=== PATIENT | female | born 1945 | race African-American/Black ===

== ENCOUNTER 2016-11-16 22:48 | Inpatient (IN) | payer MEDICARE, MEDICAID ==
[~2016-11-16] VITALS: Ht 160 cm; Wt 70.3 kg
[~2016-11-16 22:48] MED LIST: ASPIR 8181 MG ORAL; BP MEDS; CALCIUM500 M3 PO; IBUPROFEN600 MG ORAL; NORCO 5-325 TA1 EACH ORAL
[2016-11-16] MEDS ORDERED: NKM (22:57)
[2016-11-16 23:09] VITALS: BP 188/83
--- NOTE | 2016-11-16 23:22 | Emergency Room Report ---
History of Present Illness General Chief Complaint: Pain Source: Patient Present Illness HPI Patient presents with complaints of back pain She feels the back pain radiates across and wraparound the back towards the anterior abdominal area Denies any fall or trauma patient reports that she has many steps at her home and this has exacerbated her pain Ongoing for the past several days denies any chest pressures of breath Patient had rest cancer in remission for the past 18 years Denies any dysuria frequency denies any abdominal pain at this time and reports that the back pain essentially stops at the mid axillary area bilaterally Allergies: Coded Allergies: DIPHENHYDRAMINE (Unverified Adverse Reaction, Mild, 06/04/14) Patient History Past Medical History: see triage record Pertinent Family History: none Now: No : 4 Para: 4 Reviewed Nursing Documentation: PMH: Agreed, PSxH: Agreed Nursing Documentation-PMH Hx Cardiac Problems: Yes - Rheumatic Hx Hypertension: Yes Hx Cancer: Yes - Breast cancer History Of Psychiatric Problem: Yes - Depression Review of Systems All Other Systems: negative except mentioned in HPI Physical Exam Vital Signs Date Time Temp Pulse Resp B/P Pulse Ox O2 Delivery O2 Flow Rate FiO2 11/16/16 22:53 99.0 90 14 195/99 99 Room Air Sp02 EP Interpretation: reviewed, normal General Appearance: well appearing, no apparent distress Head: normocephalic, atraumatic 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, bilateral eye EOMI, bilateral eye PERRL ENT: hearing grossly normal, normal pharynx, TMs + canals normal, uvula midline Neck: full range of motion, supple, no meningismus, no bony tend Respiratory: lungs clear, normal breath sounds, no rhonchi, no respiratory distress, no retraction, no accessory muscle use Cardiovascular #1: normal peripheral pulses, regular rate, rhythm, no edema, no gallop, no JVD, no murmur Gastrointestinal: normal bowel sounds, non tender, soft, no mass, no organomegaly, non-distended, no guarding, no hernia, no pulsatile mass, no rebound Genitourinary: no CVA tenderness Musculoskeletal: other - Evidence of facial right-sided Hanna's palsy, otherwise moves lower extremity equally no focal deficits Neurologic: oriented x3, responsive, motor strength/tone normal, sensory intact Psychiatric: mood/affect normal Skin: normal color, no rash, warm/dry, palpation normal Lymphatic: normal inspection, no adenopathy Medical Decision Making Diagnostic Impression: Primary Impression: Back pain Additional Impression: Abnormal CT scan ER Course Multiple differentials considered including but not limited to, infectious, metabolic disorder, bony abnormality Patient's CT reveals evidence of lucency, in the iliac area This raises concern for possible metastatic disease given the patient's history Patient requires admission for further inpatient evaluation Labs Test 11/16/16 22:30 White Blood Count 6.9 K/UL (4.8-10.8) Red Blood Count 4.23 M/UL (4.20-5.40) Hemoglobin 11.3 G/DL (12.0-16.0) Hematocrit 34.3 % (37.0-47.0) Mean Corpuscular Volume 81 FL (80-99) Mean Corpuscular Hemoglobin 26.7 PG (27.0-31.0) Mean Corpuscular Hemoglobin Concent 32.9 G/DL (32.0-36.0) Red Cell Distribution Width 12.4 % (11.6-14.8) Platelet Count 170 K/UL (150-450) Mean Platelet Volume 8.3 FL (6.5-10.1) Neutrophils (%) (Auto) 59.3 % (45.0-75.0) Lymphocytes (%) (Auto) 31.9 % (20.0-45.0) Monocytes (%) (Auto) 6.1 % (1.0-10.0) Eosinophils (%) (Auto) 1.1 % (0.0-3.0) Basophils (%) (Auto) 1.5 % (0.0-2.0) Prothrombin Time 9.7 SEC (9.30-11.50) Prothromb Time International Ratio 0.9 (0.9-1.1) Activated Partial Thromboplast Time 28 SEC (23-33) Urine Color Pale yellow Urine Appearance Clear Urine pH 6.5 (4.5-8.0) Urine Specific [place] 1.010 (1.005-1.035) Urine Protein Negative (NEGATIVE) Urine Glucose (UA) Negative (NEGATIVE) Urine Ketones Negative (NEGATIVE) Urine Occult Blood 1+ (NEGATIVE) Urine Nitrite Negative (NEGATIVE) Urine Bilirubin Negative (NEGATIVE) Urine Urobilinogen Normal MG/DL (0.0-1.0) Urine Leukocyte Esterase 1+ (NEGATIVE) Urine RBC 0-2 /HPF (0 - 2) Urine WBC 2-4 /HPF (0 - 2) Urine Squamous Epithelial Cells Few /LPF (NONE/OCC) Urine Bacteria None /HPF (NONE) Sodium Level 136 mEQ/L (135-145) Potassium Level 3.2 mEQ/L (3.4-4.9) Chloride Level 97 mEQ/L (98-107) Carbon Dioxide Level 29 mEQ/L (20-30) Anion Gap 10 (5-15) Blood Urea Nitrogen 15 mg/dL (7-23) Creatinine 0.7 mg/dL (0.5-0.9) Estimat Glomerular Filtration Rate > 60 mL/min (>60) Glucose Level 97 mg/dL (74-106) Calcium Level 10.0 mg/dL (8.6-10.2) Total Bilirubin 0.6 mg/dL (0.0-1.2) Aspartate Amino Transf (AST/SGOT) 16 U/L (5-40) Alanine Aminotransferase (ALT/SGPT) 7 U/L (3-33) Alkaline Phosphatase 95 U/L (35-104) Total Creatine Kinase 132 U/L (26-140) Creatine Kinase MB 1.6 ng/mL (< 3.8) Creatine Kinase MB Relative Index 1.2 Troponin I < 0.30 ng/mL (<=0.30) Pro-B-Type Natriuretic Peptide 225 pg/mL (0-125) Total Protein 7.8 g/dL (6.6-8.7) Albumin 4.3 g/dL (3.5-5.2) Globulin 3.5 g/dL Albumin/Globulin Ratio 1.2 (1.0-2.7) Lipase 45 U/L (< 60) Rhythm Strip Diag. Results EP Interpretation: yes Rate: 67 Rhythm: NSR, no PVC's, no ectopy CT/MRI/US Diagnostic Results CT/MRI/US Diagnostic Results : Impression CT abdomen pelvis: Areas of lucency in the iliac area no obvious intra- abdominal pathology CT L-spine: Evidence of lucency in the iliac area nonspecific Last Vital Signs Date Time Temp Pulse Resp B/P Pulse Ox O2 Delivery O2 Flow Rate FiO2 11/16/16 23:09 99.0 73 18 188/83 99 Room Air Status: improved Disposition: ADMITTED INPATIENT Condition: Serious Referrals: NOT CHOSEN IPA/MD,REFERRING (PCP) NARDA GUSMAN D.O. Nov 16, 2016 23:22
[2016-11-16 23:54] LABS: APPEARANCE,URINE CLEAR; BASOPHILS % (AUTO) 1.5 % (0.0-2.0); EOSINOPHILS % (AUTO) 1.1 % (0.0-3.0); KETONES,URINE NEGATIVE (NEGATIVE); LYMPHOCYTES % (AUTO) 31.9 % (20.0-45.0); MEAN CORPUSCULAR HEMOGLOBIN 26.7 PG (27.0-31.0); MEAN CORPUSCULAR HGB CONC 32.9 G/DL (32.0-36.0); MEAN CORPUSCULAR VOLUME 81 FL (80-99); MEAN PLATELET VOLUME 8.3 FL (6.5-10.1); MONOCYTES % (AUTO) 6.1 % (1.0-10.0); NEUTROPHILS % (AUTO) 59.3 % (45.0-75.0); NITRITE,URINE NEGATIVE (NEGATIVE); PH,URINE 6.5 (4.5-8.0); PLATELET COUNT 170 K/UL (150-450); PROTEIN,URINE NEGATIVE (NEGATIVE); RED BLOOD COUNT 4.23 M/UL (4.20-5.40); RED CELL DISTRIBUTION WIDTH 12.4 % (11.6-14.8); UROBILINOGEN,URINE NORMAL MG/DL (0.0-1.0); WHITE BLOOD COUNT 6.9 K/UL (4.8-10.8)
[2016-11-17 00:03] LABS: LEUKOCYTE ESTERASE ,URINE 1+ (NEGATIVE)
[2016-11-17 00:04] LABS: RBC,URINE 0-2 /HPF (0 - 2); SQUAMOUS EPITHELIAL CELL,UR FEW /LPF (NONE/OCC)
[2016-11-17 00:05] LABS: INR 0.9 (0.9-1.1); PROTHROMBIN TIME 9.7 SEC (9.30-11.50)
[2016-11-17 00:07] LABS: TROPONIN I < 0.30 ng/mL (<=0.30)
[2016-11-17 00:10] LABS: ALANINE AMINOTRANSFERASE 7 U/L (3-33); ALBUMIN/GLOBULIN RATIO 1.2 (1.0-2.7); ANION GAP 10 (5-15); ASPARTATE AMINO TRANSFERASE 16 U/L (5-40); CARBON DIOXIDE 29 mEQ/L (20-30); CHLORIDE 97 mEQ/L (98-107); CREATININE 0.7 mg/dL (0.5-0.9); GLOMERULAR FILTRATION RATE > 60 mL/min (>60); HEMOLYSIS 7; LIPASE 45 U/L (< 60); POTASSIUM 3.2 mEQ/L (3.4-4.9); SODIUM 136 mEQ/L (135-145); TOTAL PROTEIN 7.8 g/dL (6.6-8.7)
[2016-11-17 00:21] LABS: CKMB 1.6 ng/mL (< 3.8)
[2016-11-17 02:52] VITALS: BP 163/74
[2016-11-17 04:59] VITALS: BP 164/83
[2016-11-17] MEDS ORDERED: Norco 5mg/325mg tab ORAL PRN (07:45)
[2016-11-17] MEDS ORDERED: LORazepam Inj 2mg/ml 1ml IV PRN (07:45)
[2016-11-17] MEDS ORDERED: Miralax 17gm pkt ORAL PRN (07:45)
[2016-11-17] MEDS ORDERED: Morphine Sulfate 4mg/ml Inj IVP PRN (07:45)
[2016-11-17] MEDS ORDERED: Morphine Sulfate 2mg/ml Inj IVP PRN (07:45)
[2016-11-17] MEDS ORDERED: Mylanta II UD 30ml ORAL PRN (07:45)
[2016-11-17 08:02] VITALS: BP 165/80
[2016-11-17] MEDS: Heparin 5000 units/ml inj SUBQ SCH ×2 (08:18→20:48)
--- NOTE | 2016-11-17 09:21 | Diagnostic Imaging Report ---
Indications: PAIN, back pain, trauma Technique: Spiral acquisitions obtained through the lumbar spine. Multiplanar reconstructions were generated. No IV contrast utilized. Total dose length product 570 mGycm. CTDIvol(s) 16 mGy. Dose reduction achieved using automated exposure control Comparison: None Findings: Bony alignment is normal. Vertebral body heights are preserved. Disc spaces are preserved. No acute fractures. No dislocations. There is mild circumferential annular bulge at L3-4 and L4-5, but this does not result in any significant spinal stenosis. No significant disc bulge or protrusion or spinal stenosis elsewhere. No evidence of neural foraminal stenosis. There is multilevel facet degeneration. There are cholecystectomy clips Impression: No acute bony trauma Degenerative changes as described This agrees with the preliminary interpretation provided overnight by [facility]erad[facility] service. The CT scanner at [facility] is accredited by the [employer] and the scans are performed using protocols designed to limit radiation exposure to as low as reasonably achievable to attain images of sufficient resolution adequate for diagnostic evaluation.
--- NOTE | 2016-11-17 09:26 | Consultation ---
History of Present Illness General Date patient seen: Nov 17, 2016 Chief Complaint: Pain Present Illness Allergies: Coded Allergies: DIPHENHYDRAMINE (Unverified Adverse Reaction, Mild, 06/04/14) Medication History Scheduled Aspirin* (Aspir 81*), 81 MG ORAL DAILY, (Reported) No Known Medications* (NKM - No Known Medications*), 0 ., (Reported) Scheduled PRN Hydrocodone Bit/Acetaminophen 5-325* ([place] 5-325*), 1 TAB ORAL Q6H PRN for For Pain Ibuprofen* (Motrin*), 600 MG ORAL Q8H PRN for For Pain Miscellaneous Medications Calcium Carbonate (Calcium), 500 MG PO, (Reported) [Bp Meds], (Reported) Patient History Healthcare decision maker Resuscitation status Advanced Directive on File Physical Exam Last 24 Hour Vital Signs Date Time Temp Pulse Resp B/P Pulse Ox O2 Delivery O2 Flow Rate FiO2 11/17/16 08:02 97.9 74 20 165/80 99 11/17/16 04:59 98.1 67 20 164/83 97 Room Air 11/17/16 04:13 99.0 57 14 163/74 100 Room Air 11/17/16 02:52 99.0 57 14 163/74 100 Room Air 11/16/16 23:09 99.0 73 18 188/83 99 Room Air 11/16/16 22:53 99.0 90 14 195/99 99 Room Air Intake and Output 11/16/16 11/17/16 19:00 07:00 # Voids 1 Laboratory Tests Test 11/16/16 22:30 White Blood Count 6.9 K/UL (4.8-10.8) Red Blood Count 4.23 M/UL (4.20-5.40) Hemoglobin 11.3 G/DL (12.0-16.0) L Hematocrit 34.3 % (37.0-47.0) L Mean Corpuscular Volume 81 FL (80-99) Mean Corpuscular Hemoglobin 26.7 PG (27.0-31.0) L Mean Corpuscular Hemoglobin Concent 32.9 G/DL (32.0-36.0) Red Cell Distribution Width 12.4 % (11.6-14.8) Platelet Count 170 K/UL (150-450) Mean Platelet Volume 8.3 FL (6.5-10.1) Neutrophils (%) (Auto) 59.3 % (45.0-75.0) Lymphocytes (%) (Auto) 31.9 % (20.0-45.0) Monocytes (%) (Auto) 6.1 % (1.0-10.0) Eosinophils (%) (Auto) 1.1 % (0.0-3.0) Basophils (%) (Auto) 1.5 % (0.0-2.0) Prothrombin Time 9.7 SEC (9.30-11.50) Prothromb Time International Ratio 0.9 (0.9-1.1) Activated Partial Thromboplast Time 28 SEC (23-33) Urine Color Pale yellow Urine Appearance Clear Urine pH 6.5 (4.5-8.0) Urine Specific [place] 1.010 (1.005-1.035) Urine Protein Negative (NEGATIVE) Urine Glucose (UA) Negative (NEGATIVE) Urine Ketones Negative (NEGATIVE) Urine Occult Blood 1+ (NEGATIVE) H Urine Nitrite Negative (NEGATIVE) Urine Bilirubin Negative (NEGATIVE) Urine Urobilinogen Normal MG/DL (0.0-1.0) Urine Leukocyte Esterase 1+ (NEGATIVE) H Urine RBC 0-2 /HPF (0 - 2) Urine WBC 2-4 /HPF (0 - 2) Urine Squamous Epithelial Cells Few /LPF (NONE/OCC) Urine Bacteria None /HPF (NONE) Sodium Level 136 mEQ/L (135-145) Potassium Level 3.2 mEQ/L (3.4-4.9) L Chloride Level 97 mEQ/L (98-107) L Carbon Dioxide Level 29 mEQ/L (20-30) Anion Gap 10 (5-15) Blood Urea Nitrogen 15 mg/dL (7-23) Creatinine 0.7 mg/dL (0.5-0.9) Estimat Glomerular Filtration Rate > 60 mL/min (>60) Glucose Level 97 mg/dL (74-106) Calcium Level 10.0 mg/dL (8.6-10.2) Total Bilirubin 0.6 mg/dL (0.0-1.2) Aspartate Amino Transf (AST/SGOT) 16 U/L (5-40) Alanine Aminotransferase (ALT/SGPT) 7 U/L (3-33) Alkaline Phosphatase 95 U/L (35-104) Total Creatine Kinase 132 U/L (26-140) Creatine Kinase MB 1.6 ng/mL (< 3.8) Creatine Kinase MB Relative Index 1.2 Troponin I < 0.30 ng/mL (<=0.30) Pro-B-Type Natriuretic Peptide 225 pg/mL (0-125) H Total Protein 7.8 g/dL (6.6-8.7) Albumin 4.3 g/dL (3.5-5.2) Globulin 3.5 g/dL Albumin/Globulin Ratio 1.2 (1.0-2.7) Lipase 45 U/L (< 60) Height (Feet): 5 Height (Inches): 3.00 Weight (Pounds): 155 Medications Current Medications Medications (Trade) Dose Ordered Sig/Vinicio Route PRN Reason Start Time Stop Time Status Last Admin Dose Admin Acetaminophen (Tylenol) 650 mg Q4H PRN ORAL fever 11/17/16 07:45 12/17/16 07:44 Acetaminophen/ Hydrocodone Bitart ([place] 5/325) 1 tab Q6H PRN ORAL Moderate Pain (Pain Scale 4-6) 11/17/16 07:45 11/24/16 07:44 Al Hydroxide/Mg Hydroxide (Mylanta II) 30 ml Q6H PRN ORAL dyspepsia 11/17/16 07:45 12/17/16 07:44 Dextrose (Dextrose 50%) STAT PRN IV Hypoglycemia 11/17/16 07:45 12/17/16 07:44 Heparin Sodium (Porcine) (Heparin 5000 units/ml) 5,000 units EVERY 12 HOURS SUBQ 11/17/16 09:00 12/17/16 08:59 11/17/16 08:18 Lorazepam (Ativan 2mg/ml 1ml) 0.5 mg Q4H PRN IV For Anxiety 11/17/16 07:45 11/24/16 07:44 Morphine Sulfate (Morphine Sulfate) 2 mg Q4H PRN IVP For Pain 4-6 11/17/16 07:45 11/24/16 07:44 Morphine Sulfate (Morphine Sulfate) 4 mg Q4H PRN IVP For Pain 7-10 11/17/16 07:45 11/24/16 07:44 Ondansetron HCl (Zofran) 4 mg Q6H PRN IVP Nausea & Vomiting 11/17/16 07:45 12/17/16 07:44 Polyethylene Glycol (Miralax) 17 gm HSPRN PRN ORAL Constipation 11/17/16 07:45 12/17/16 07:44 Zolpidem Tartrate (Ambien) 5 mg HSPRN PRN ORAL Insomnia 11/17/16 20:00 12/17/16 19:59 Assessment/Plan Assessment/Plan (1) Lumbago (2) Lumbar Herniated disc (3) Lumbar Spondylosis (4) Lumbar Degenerative disc disease Seen dictated MARCO ANTONIO CHAVEZ Nov 17, 2016 09:25
--- NOTE | 2016-11-17 09:29 | Diagnostic Imaging Report ---
Clinical Indication: PAIN Technique: No oral contrast utilized, per emergency room physician request IV administration nonionic contrast. Venous phase spiral acquisition obtained through the abdomen and pelvis. Multiplanar reconstructions were generated. Total dose length product 8:30 mGycm. CTDIvol(s) 17 mGy. Dose reduction achieved using automated exposure control Comparison: None Findings: The appendix is not definitely demonstrated, but there are no findings to suggest acute appendicitis. No evidence of diverticulosis or diverticulitis. No small bowel distention. No free or loculated intraperitoneal air or fluid is evident area the distal esophagus, stomach, duodenum are unremarkable. The liver demonstrates a 4.5 cm cyst in the dome, segment 8. No other focal abnormalities demonstrated. The patient is status post cholecystectomy. Small calcification are seen in Morison's pouch which may represent dropped gallstones related to such. There is mild prominence to the extrahepatic and central intrahepatic ducts, extrahepatic ducts measuring up to 9 mm diameter. The downstream obstruction lesion demonstrated. The pancreas, spleen, adrenals are unremarkable. The right kidney demonstrate subcentimeter low-attenuation lesions which are too small to characterize. The left kidney is unremarkable.. The included lung bases are clear. The bones are unremarkable except for mild degenerative facet disease of the lumbar spine. Small lucencies are seen within the iliac bones bilaterally Impression: Limited exam, due to lack of enteric contrast ministration limiting assessment of the GI tract No definite acute abnormality. Small nonspecific lucencies within the bilateral iliac bones. Consider bone scan to assess for activity Evidence of prior cholecystectomy. Probable small dropped gallstones in Morison's pouch Subcentimeter low-attenuation right renal lesions, too small to characterize, most likely benign simple cysts. No further followup needed Incidental finding of 4.5 cm cyst in the dome of the liver This agrees with the preliminary interpretation provided overnight by [facility] service. The CT scanner at [facility] is accredited by the [employer] and the scans are performed using protocols designed to limit radiation exposure to as low as reasonably achievable to attain images of sufficient resolution adequate for diagnostic evaluation.
--- NOTE | 2016-11-17 09:34 | Diagnostic Imaging Report ---
Indication: PAIN, Technique: Continuous helical CT scanning of the head was performed without intravenous contrast material. Axial and coronal 5 mm sections were generated. Radiation dose was minimized using automated exposure control Dose: Total Dose Length Product - DLP [address] Dose Index - CTDIvol(s) 70.38 mGy. Comparison: Findings: Slightly increased density of the vascular structures is presumably related to recent contrast administration 4 cc of the abdomen and pelvis. This limits sensitivity of the exam for hemorrhage. The ventricular system is normal in size and configuration. There is no shift of midline structures. No abnormal extra-axial fluid collections are noted. There is no evidence of intracerebral bleeding. No other abnormal high or low density areas are noted within the brain. There is minimal left maxillary sinus mucosal thickening. Intact calvarium. Unremarkable orbits. Impression: Normal CT scan of the head without contrast material. Incidental finding maxillary sinus disease This agrees with the preliminary interpretation provided overnight by [facility] service. The CT scanner at [facility] is accredited by the [employer] and the scans are performed using protocols designed to limit radiation exposure to as low as reasonably achievable to attain images of sufficient resolution adequate for diagnostic evaluation.
[2016-11-17 11:36] VITALS: BP 157/74
[2016-11-17 15:39] VITALS: BP 152/82
--- NOTE | 2016-11-17 16:02 | History and Physical ---
History of Present Illness General Date patient seen: Nov 17, 2016 Reason for Hospitalization: Pain Present Illness HPI 70 year old female presented to ER with CC of intractable back pain She feels the back pain radiates across and wraparound the back towards the anterior abdominal area Allergies: Coded Allergies: DIPHENHYDRAMINE (Unverified Adverse Reaction, Mild, 06/04/14) Medication History Scheduled Aspirin* (Aspir 81*), 81 MG ORAL DAILY, (Reported) No Known Medications* (NKM - No Known Medications*), 0 ., (Reported) Scheduled PRN Hydrocodone Bit/Acetaminophen 5-325* ([place] 5-325*), 1 TAB ORAL Q6H PRN for For Pain Ibuprofen* (Motrin*), 600 MG ORAL Q8H PRN for For Pain Miscellaneous Medications Calcium Carbonate (Calcium), 500 MG PO, (Reported) [Bp Meds], (Reported) Patient History Healthcare decision maker pt A&Ox4 Resuscitation status Advanced Directive on File Past Medical/Surgical History Past Medical/Surgical History: (1) Breast cancer Review of Systems Constitutional: Reports: no symptoms Eye: Reports: no symptoms ENT: Reports: no symptoms Physical Exam General Appearance: no apparent distress Lines, tubes and drains: peripheral HEENT: normocephalic, atraumatic Neck: non-tender, normal alignment Respiratory/Chest: chest wall non-tender, lungs clear Last 24 Hour Vital Signs Date Time Temp Pulse Resp B/P Pulse Ox O2 Delivery O2 Flow Rate FiO2 11/17/16 15:39 97.8 62 20 152/82 100 Room Air 11/17/16 11:36 98.1 61 20 157/74 100 Room Air 11/17/16 08:02 97.9 74 20 165/80 99 11/17/16 04:59 98.1 67 20 164/83 97 Room Air 11/17/16 04:13 99.0 57 14 163/74 100 Room Air 11/17/16 02:52 99.0 57 14 163/74 100 Room Air 11/16/16 23:09 99.0 73 18 188/83 99 Room Air 11/16/16 22:53 99.0 90 14 195/99 99 Room Air Intake and Output 11/16/16 11/17/16 19:00 07:00 # Voids 1 Laboratory Tests Test 6/7/17 22:30 White Blood Count 6.9 K/UL (4.8-10.8) Red Blood Count 4.23 M/UL (4.20-5.40) Hemoglobin 11.3 G/DL (12.0-16.0) L Hematocrit 34.3 % (37.0-47.0) L Mean Corpuscular Volume 81 FL (80-99) Mean Corpuscular Hemoglobin 26.7 PG (27.0-31.0) L Mean Corpuscular Hemoglobin Concent 32.9 G/DL (32.0-36.0) Red Cell Distribution Width 12.4 % (11.6-14.8) Platelet Count 170 K/UL (150-450) Mean Platelet Volume 8.3 FL (6.5-10.1) Neutrophils (%) (Auto) 59.3 % (45.0-75.0) Lymphocytes (%) (Auto) 31.9 % (20.0-45.0) Monocytes (%) (Auto) 6.1 % (1.0-10.0) Eosinophils (%) (Auto) 1.1 % (0.0-3.0) Basophils (%) (Auto) 1.5 % (0.0-2.0) Prothrombin Time 9.7 SEC (9.30-11.50) Prothromb Time International Ratio 0.9 (0.9-1.1) Activated Partial Thromboplast Time 28 SEC (23-33) Urine Color Pale yellow Urine Appearance Clear Urine pH 6.5 (4.5-8.0) Urine Specific [place] 1.010 (1.005-1.035) Urine Protein Negative (NEGATIVE) Urine Glucose (UA) Negative (NEGATIVE) Urine Ketones Negative (NEGATIVE) Urine Occult Blood 1+ (NEGATIVE) H Urine Nitrite Negative (NEGATIVE) Urine Bilirubin Negative (NEGATIVE) Urine Urobilinogen Normal MG/DL (0.0-1.0) Urine Leukocyte Esterase 1+ (NEGATIVE) H Urine RBC 0-2 /HPF (0 - 2) Urine WBC 2-4 /HPF (0 - 2) Urine Squamous Epithelial Cells Few /LPF (NONE/OCC) Urine Bacteria None /HPF (NONE) Sodium Level 136 mEQ/L (135-145) Potassium Level 3.2 mEQ/L (3.4-4.9) L Chloride Level 97 mEQ/L (98-107) L Carbon Dioxide Level 29 mEQ/L (20-30) Anion Gap 10 (5-15) Blood Urea Nitrogen 15 mg/dL (7-23) Creatinine 0.7 mg/dL (0.5-0.9) Estimat Glomerular Filtration Rate > 60 mL/min (>60) Glucose Level 97 mg/dL (74-106) Calcium Level 10.0 mg/dL (8.6-10.2) Total Bilirubin 0.6 mg/dL (0.0-1.2) Aspartate Amino Transf (AST/SGOT) 16 U/L (5-40) Alanine Aminotransferase (ALT/SGPT) 7 U/L (3-33) Alkaline Phosphatase 95 U/L (35-104) Total Creatine Kinase 132 U/L (26-140) Creatine Kinase MB 1.6 ng/mL (< 3.8) Creatine Kinase MB Relative Index 1.2 Troponin I < 0.30 ng/mL (<=0.30) Pro-B-Type Natriuretic Peptide 225 pg/mL (0-125) H Total Protein 7.8 g/dL (6.6-8.7) Albumin 4.3 g/dL (3.5-5.2) Globulin 3.5 g/dL Albumin/Globulin Ratio 1.2 (1.0-2.7) Lipase 45 U/L (< 60) Height (Feet): 5 Height (Inches): 3.00 Weight (Pounds): 155 Medications Current Medications Medications (Trade) Dose Ordered Sig/Vinicio Route PRN Reason Start Time Stop Time Status Last Admin Dose Admin Acetaminophen (Tylenol) 650 mg Q4H PRN ORAL fever 11/17/16 07:45 12/17/16 07:44 Acetaminophen/ Hydrocodone Bitart ([place] 5/325) 1 tab Q6H PRN ORAL Moderate Pain (Pain Scale 4-6) 11/17/16 07:45 11/24/16 07:44 Al Hydroxide/Mg Hydroxide (Mylanta II) 30 ml Q6H PRN ORAL dyspepsia 11/17/16 07:45 12/17/16 07:44 Clonidine HCl (Catapres) 0.1 mg Q6H PRN ORAL SBP > 160 11/17/16 15:15 12/17/16 15:14 Dextrose (Dextrose 50%) STAT PRN IV Hypoglycemia 11/17/16 07:45 12/17/16 07:44 Heparin Sodium (Porcine) (Heparin 5000 units/ml) 5,000 units EVERY 12 HOURS SUBQ 11/17/16 09:00 12/17/16 08:59 11/17/16 08:18 Lorazepam (Ativan 2mg/ml 1ml) 0.5 mg Q4H PRN IV For Anxiety 11/17/16 07:45 11/24/16 07:44 Morphine Sulfate (Morphine Sulfate) 2 mg Q4H PRN IVP For Pain 4-6 11/17/16 07:45 11/24/16 07:44 Morphine Sulfate (Morphine Sulfate) 4 mg Q4H PRN IVP For Pain 7-10 11/17/16 07:45 11/24/16 07:44 Ondansetron HCl (Zofran) 4 mg Q6H PRN IVP Nausea & Vomiting 11/17/16 07:45 12/17/16 07:44 Polyethylene Glycol (Miralax) 17 gm HSPRN PRN ORAL Constipation 11/17/16 07:45 12/17/16 07:44 Zolpidem Tartrate (Ambien) 5 mg HSPRN PRN ORAL Insomnia 11/17/16 20:00 12/17/16 19:59 Assessment/Plan Problem List: (1) Intractable back pain ICD Codes: M54.9 - Dorsalgia, unspecified SNOMED: 456795031 (2) Breast cancer ICD Codes: C50.919 - Malignant neoplasm of unspecified site of unspecified female breast SNOMED: 897438647 Assessment/Plan neuro and pain management symptomatic treatment f/u tumor markers. RON BANSAL Nov 17, 2016 16:02
[2016-11-17 20:00] VITALS: BP 146/84
[2016-11-17] MEDS ORDERED: Zolpidem 5mg tab ORAL PRN (20:00)
[2016-11-18] VITALS: BP 137/88
--- NOTE | 2016-11-18 02:30 | Consultation ---
DATE OF CONSULTATION: 11/17/2016 REFERRING PHYSICIAN: Paul Temple M.D. CONSULTING PHYSICIAN: Arnulfo Collier M.D. PHYSICIAN TEST RACK OPERATOR: Baldemar Gomes CHIEF COMPLAINT: Low back pain. HISTORY OF PRESENT ILLNESS: The patient is a 70-year-old female, who has been seen in the pain management for initial comprehensive pain management consultation here in [facility] on the Med/Surg floor. The patient reports that she has been having low back pain for the last 2 weeks. It is constant, acute pain, rating 4/10, it is worse describing as stabbing, increasing with getting up and nothing has been helping with her pain. The patient's son is in room. At this time, the patient reports that she woke up about a week ago with pain in her back worsening over the week and opted to be admitted in to the hospital under the care of Dr. Temple. A CT scan of lumbar spine was done showing no acute bony trauma with degenerative changes and mild decompression at L4-L5 and L5-S1. At this time, she was admitted into the hospital under the care of Dr. Temple. We were consulted so that the patient would have adequate pain control while here in the hospital for faster recovery. At this time, the patient is comfortable, sitting up in bed, in no acute distress. We were consulted so that the patient would have adequate pain control while here in the hospital. PAST MEDICAL HISTORY: Breast cancer. SURGICAL HISTORY: Mastectomy and tonsillectomy. SOCIAL HISTORY: Denies smoking, drinking alcohol, or drug abuse. ALLERGIES: Diphenhydramine. REVIEW OF SYSTEMS: Denies rash, fever, chills, sweating, dizziness, drowsiness, blurred vision, sore throat, or change in weight. No shortness of breath or chest pain. No nausea, vomiting, diarrhea, or blood in the stool or urine. No bowel or bladder incontinence. No dysuria. She is complaining of low back pain. PHYSICAL EXAMINATION: VITAL SIGNS: Blood pressure 116/80 mmHg, heart rate 90, respirations 19, and temperature 97.9 degrees Fahrenheit. Height is 5 feet 3 inches and weight 105 pounds. HEENT: PERRLA. NECK: Range of motion is full in all directions. No tenderness to paracervical muscles. No adenopathy. LUNGS: Clear. HEART: Regular. ABDOMEN: Benign. BACK: Range of motion is decreased in flexion and extension with tenderness to paraspinal muscles. No tenderness to trapezius or rhomboid muscles. EXTREMITIES: Upper extremity range of motion is full in all directions. Motor is intact. No cyanosis. No clubbing. No edema. Sensory is intact. There is no adenopathy. Lower extremity range of motion is decreased due to the patient's condition. Motor is being 4/5 in all muscles bilaterally. No cyanosis. No clubbing. No edema. Sensory is intact. Reflexes are not obtainable. ASSESSMENT AND PLAN: At this time, this is a 70-year-old female with lumbago, lumbar herniated disk, lumbar spondylosis, and lumbar degenerative disease. The patient will be continued on the morphine 2 to 4 mg IV every 4 hours as needed for moderate to severe pain with the [place] 5/325 mg every 6 hours as needed for pain. The patient will be going for MRI of lumbar spine without contrast to rule out any further pathology in the lumbar spine. The patient was discussed with Dr. Collier and Dr. Collier concurred. We will follow the patient. Thank you very much for the courtesy of this consultation. Arnulfo Collier M.D. ARCADIO Gomes DR: SAM JOB#: [id number] CC:
[2016-11-18 04:00] VITALS: BP 142/70
[2016-11-18 07:12] LABS: ALANINE AMINOTRANSFERASE 12 U/L (3-33); ALBUMIN/GLOBULIN RATIO 1.1 (1.0-2.7); ANION GAP 10 (5-15); ASPARTATE AMINO TRANSFERASE 26 U/L (5-40); CALCIUM 9.3 mg/dL (8.6-10.2); CARBON DIOXIDE 31 mEQ/L (20-30); CHLORIDE 99 mEQ/L (98-107); CREATININE 0.7 mg/dL (0.5-0.9); GLOMERULAR FILTRATION RATE > 60 mL/min (>60); HEMOLYSIS 2; POTASSIUM 3.8 mEQ/L (3.4-4.9); SODIUM 140 mEQ/L (135-145); TOTAL PROTEIN 6.9 g/dL (6.6-8.7)
[2016-11-18 07:14] LABS: BASOPHILS % (AUTO) 0.5 % (0.0-2.0); EOSINOPHILS % (AUTO) 0.6 % (0.0-3.0); LYMPHOCYTES % (AUTO) 29.7 % (20.0-45.0); MEAN CORPUSCULAR HEMOGLOBIN 26.5 PG (27.0-31.0); MEAN CORPUSCULAR HGB CONC 31.9 G/DL (32.0-36.0); MEAN CORPUSCULAR VOLUME 83 FL (80-99); MEAN PLATELET VOLUME 9.4 FL (6.5-10.1); MONOCYTES % (AUTO) 6.7 % (1.0-10.0); NEUTROPHILS % (AUTO) 62.5 % (45.0-75.0); PLATELET COUNT 158 K/UL (150-450); RED BLOOD COUNT 3.84 M/UL (4.20-5.40); RED CELL DISTRIBUTION WIDTH 12.7 % (11.6-14.8)
[2016-11-18 08:00] VITALS: BP 175/78
[2016-11-18] MEDS ORDERED: HydrOXYzine 25mg tab ORAL PRN (09:45)
--- NOTE | 2016-11-18 09:54 | General Progress Note ---
Assessment/Plan Assessment/Plan (1) Lumbago (2) Lumbar Herniated disc (3) Lumbar Spondylosis (4) Lumbar Degenerative disc disease The patient will be continued on the morphine and norco. MRI of lumbar spine results pending. The patient was discussed with Dr. Collier and Dr. Collier concurred. Subjective Date patient seen: Nov 18, 2016 Time patient seen: 08:15 - am Allergies: Coded Allergies: DIPHENHYDRAMINE (Unverified Adverse Reaction, Mild, 11/18/16) patient states drowsy effect stays too long and does not like it Subjective REVIEW OF SYSTEMS: Denies rash, fever, chills, sweating, dizziness, drowsiness, blurred vision, sore throat, or change in weight. No shortness of breath or chest pain. No nausea, vomiting, diarrhea, or blood in the stool or urine. No bowel or bladder incontinence. No dysuria. She is complaining of low back pain. SUBJECTIVE: Patient is in bed reporting pain is a 1/10 and has just returned from MRI. Objective Last 24 Hour Vital Signs Date Time Temp Pulse Resp B/P Pulse Ox O2 Delivery O2 Flow Rate FiO2 11/18/16 08:00 98.1 57 20 175/78 99 Room Air 11/18/16 04:00 98.2 70 20 142/70 97 Room Air 11/18/16 00:00 98.9 62 20 137/88 100 Room Air 11/17/16 20:00 99.7 71 20 146/84 100 Room Air 11/17/16 15:39 97.8 62 20 152/82 100 Room Air 11/17/16 11:36 98.1 61 20 157/74 100 Room Air Intake and Output 11/17/16 11/18/16 19:00 07:00 Intake Total 1080 ml Balance 1080 ml Intake Oral 1080 ml # Voids 3 1 Laboratory Tests 11/17/16 16:53: Carcinoembryonic Antigen 1.7 11/18/16 06:10: White Blood Count 6.0, Red Blood Count 3.84L, Hemoglobin 10.2L, Hematocrit 31.8L , Mean Corpuscular Volume 83, Mean Corpuscular Hemoglobin 26.5L, Mean Corpuscular Hemoglobin Concent 31.9L, Red Cell Distribution Width 12.7, Platelet Count 158, Mean Platelet Volume 9.4, Neutrophils (%) (Auto) 62.5, Lymphocytes (%) (Auto) 29.7, Monocytes (%) (Auto) 6.7, Eosinophils (%) (Auto) 0.6, Basophils (%) (Auto) 0.5, Sodium Level 140, Potassium Level 3.8, Chloride Level 99, Carbon Dioxide Level 31H, Anion Gap 10, Blood Urea Nitrogen 14, Creatinine 0.7, Estimat Glomerular Filtration Rate > 60, Glucose Level 91, Calcium Level 9.3, Total Bilirubin 1.0, Aspartate Amino Transf (AST/SGOT) 26, Alanine Aminotransferase (ALT/SGPT) 12, Alkaline Phosphatase 100, Total Protein 6.9, Albumin 3.7, Globulin 3.2, Albumin/Globulin Ratio 1.1, Thyroid Stimulating Hormone (TSH) 1.960 Height (Feet): 5 Height (Inches): 3.00 Weight (Pounds): 155 Objective NECK: Range of motion is full in all directions. No tenderness to paracervical muscles. No adenopathy. LUNGS: Clear. HEART: Regular. ABDOMEN: Benign. EXTREMITIES: No cyanosis. No clubbing. No edema. NEURO: No changes. MARCO ANTONIO CHAVEZ Nov 18, 2016 09:54
[2016-11-18] MEDS: Heparin 5000 units/ml inj SUBQ SCH ×2 (09:59→20:53)
[2016-11-18 12:00] VITALS: BP 103/60
[2016-11-18] MEDS ORDERED: Pneumococcal Vaccine 25mcg/0.5ml IM ONE (12:00)
--- NOTE | 2016-11-18 12:40 | Diagnostic Imaging Report ---
Indication: Low back pain. Recent lumbar CT demonstrating disc bulges L3, L4, L5. History of mastectomy 18 years ago Technique: Sagittal T1 fast spin echo, sagittal T2 FR fast spin-echo, sagittal STIR, axial T1 and T2 FR fast spin-echo images Comparison: Reference made to CT lumbar spine 11/16/2016 Findings: There is a slight degree of image degradation due to motion artifact Vertebral body heights are preserved. Normal bony alignment. The disc spaces are preserved. There is a small hemangioma within the L5 vertebral body. Conus medullaris terminates at the inferior L1 level. At L3-4 and L4-5, there is minimal if any circumferential annular bulge this does not significantly compromise the spinal canal or the neural foramina. At the remaining disc levels, no significant disc bulge or protrusion, spinal stenosis, or neural foraminal stenosis. There is multilevel facet degeneration, better visualized on recent CT scan. Impression: Minimal circumferential annular bulge at L3-4 and L4-5, probably not resulting in any significant neural compromise No significant abnormality otherwise Findings discussed by phone with Dr. Temple at the time of interpretation
--- NOTE | 2016-11-18 14:50 | Pulmonology Progress Note ---
Assessment/Plan Problems: (1) Intractable back pain (2) Breast cancer Assessment/Plan bone scan is ordered tumro makers are pending pain management neuro evaluation Subjective Constitutional: Reports: no symptoms Respiratory: Reports: no symptoms Cardiovascular: Reports: no symptoms Gastrointestinal/Abdominal: Reports: no symptoms Allergies: Coded Allergies: DIPHENHYDRAMINE (Unverified Adverse Reaction, Mild, 11/18/16) patient states drowsy effect stays too long and does not like it Objective Last 24 Hour Vital Signs Date Time Temp Pulse Resp B/P Pulse Ox O2 Delivery O2 Flow Rate FiO2 11/18/16 12:00 97.2 50 20 103/60 100 Room Air 11/18/16 09:56 175/78 11/18/16 08:00 98.1 57 20 175/78 99 Room Air 11/18/16 04:00 98.2 70 20 142/70 97 Room Air 11/18/16 00:00 98.9 62 20 137/88 100 Room Air 11/17/16 20:00 99.7 71 20 146/84 100 Room Air 11/17/16 15:39 97.8 62 20 152/82 100 Room Air Intake and Output 11/17/16 11/18/16 19:00 07:00 Intake Total 1080 ml Balance 1080 ml Intake Oral 1080 ml # Voids 3 1 General Appearance: WD/WN, no acute distress HEENT: normocephalic, atraumatic Respiratory/Chest: chest wall non-tender, lungs clear Cardiovascular: normal peripheral pulses, normal rate Abdomen: soft, non tender Extremities: no cyanosis Laboratory Tests 11/17/16 16:53: Carcinoembryonic Antigen 1.7 11/18/16 06:10: White Blood Count 6.0, Red Blood Count 3.84L, Hemoglobin 10.2L, Hematocrit 31.8L , Mean Corpuscular Volume 83, Mean Corpuscular Hemoglobin 26.5L, Mean Corpuscular Hemoglobin Concent 31.9L, Red Cell Distribution Width 12.7, Platelet Count 158, Mean Platelet Volume 9.4, Neutrophils (%) (Auto) 62.5, Lymphocytes (%) (Auto) 29.7, Monocytes (%) (Auto) 6.7, Eosinophils (%) (Auto) 0.6, Basophils (%) (Auto) 0.5, Sodium Level 140, Potassium Level 3.8, Chloride Level 99, Carbon Dioxide Level 31H, Anion Gap 10, Blood Urea Nitrogen 14, Creatinine 0.7, Estimat Glomerular Filtration Rate > 60, Glucose Level 91, Calcium Level 9.3, Total Bilirubin 1.0, Aspartate Amino Transf (AST/SGOT) 26, Alanine Aminotransferase (ALT/SGPT) 12, Alkaline Phosphatase 100, Total Protein 6.9, Albumin 3.7, Globulin 3.2, Albumin/Globulin Ratio 1.1, Thyroid Stimulating Hormone (TSH) 1.960 11/18/16 08:30: Erythrocyte Sedimentation Rate 50H, CA 15-3 Antigen [Pending], CA 19-9 Antigen 11.98, CA 27.29 [Pending], CA 125 Antigen [Pending], Anti-Nuclear Antibody Screen [Pending] Current Medications Medications (Trade) Dose Ordered Sig/Vinicio Route PRN Reason Start Time Stop Time Status Last Admin Dose Admin Acetaminophen (Tylenol) 650 mg Q4H PRN ORAL fever 11/17/16 07:45 12/17/16 07:44 Acetaminophen/ Hydrocodone Bitart ([place] 5/325) 1 tab Q6H PRN ORAL Moderate Pain (Pain Scale 4-6) 11/17/16 07:45 11/24/16 07:44 Al Hydroxide/Mg Hydroxide (Mylanta II) 30 ml Q6H PRN ORAL dyspepsia 11/17/16 07:45 12/17/16 07:44 Clonidine HCl (Catapres) 0.1 mg Q6H PRN ORAL SBP > 160 11/17/16 15:15 12/17/16 15:14 11/18/16 09:56 Dextrose (Dextrose 50%) STAT PRN IV Hypoglycemia 11/17/16 07:45 12/17/16 07:44 Heparin Sodium (Porcine) (Heparin 5000 units/ml) 5,000 units EVERY 12 HOURS SUBQ 11/17/16 09:00 12/17/16 08:59 11/18/16 09:59 Hydroxyzine HCl (Atarax) 25 mg Q6H PRN ORAL Itching 11/18/16 09:45 12/18/16 09:44 11/18/16 09:55 Lorazepam (Ativan 2mg/ml 1ml) 0.5 mg Q4H PRN IV For Anxiety 11/17/16 07:45 11/24/16 07:44 Morphine Sulfate (Morphine Sulfate) 2 mg Q4H PRN IVP For Pain 4-6 11/17/16 07:45 11/24/16 07:44 11/17/16 22:15 Morphine Sulfate (Morphine Sulfate) 4 mg Q4H PRN IVP For Pain 7-10 11/17/16 07:45 11/24/16 07:44 Ondansetron HCl (Zofran) 4 mg Q6H PRN IVP Nausea & Vomiting 11/17/16 07:45 12/17/16 07:44 Polyethylene Glycol (Miralax) 17 gm HSPRN PRN ORAL Constipation 11/17/16 07:45 12/17/16 07:44 Zolpidem Tartrate (Ambien) 5 mg HSPRN PRN ORAL Insomnia 11/17/16 20:00 12/17/16 19:59 RON BANSAL Nov 18, 2016 14:50
[2016-11-18 16:00] VITALS: BP 110/50
--- NOTE | 2016-11-18 18:52 | Neurology Progress Note ---
Interim History Interim History ROS Limited/Unobtainable: No Complaints: severe LBP radiating to both flank/pelvic/abdomen areas Events: antalgic Objective Physical Exam Last Vital Signs Date Time Temp Pulse Resp B/P Pulse Ox O2 Delivery O2 Flow Rate FiO2 11/18/16 16:00 97.5 54 20 110/50 99 Room Air Laboratory Tests Test 11/18/16 06:10 11/18/16 08:30 White Blood Count 6.0 K/UL (4.8-10.8) Red Blood Count 3.84 M/UL (4.20-5.40) L Hemoglobin 10.2 G/DL (12.0-16.0) L Hematocrit 31.8 % (37.0-47.0) L Mean Corpuscular Volume 83 FL (80-99) Mean Corpuscular Hemoglobin 26.5 PG (27.0-31.0) L Mean Corpuscular Hemoglobin Concent 31.9 G/DL (32.0-36.0) L Red Cell Distribution Width 12.7 % (11.6-14.8) Platelet Count 158 K/UL (150-450) Mean Platelet Volume 9.4 FL (6.5-10.1) Neutrophils (%) (Auto) 62.5 % (45.0-75.0) Lymphocytes (%) (Auto) 29.7 % (20.0-45.0) Monocytes (%) (Auto) 6.7 % (1.0-10.0) Eosinophils (%) (Auto) 0.6 % (0.0-3.0) Basophils (%) (Auto) 0.5 % (0.0-2.0) Sodium Level 140 mEQ/L (135-145) Potassium Level 3.8 mEQ/L (3.4-4.9) Chloride Level 99 mEQ/L (98-107) Carbon Dioxide Level 31 mEQ/L (20-30) H Anion Gap 10 (5-15) Blood Urea Nitrogen 14 mg/dL (7-23) Creatinine 0.7 mg/dL (0.5-0.9) Estimat Glomerular Filtration Rate > 60 mL/min (>60) Glucose Level 91 mg/dL (74-106) Calcium Level 9.3 mg/dL (8.6-10.2) Total Bilirubin 1.0 mg/dL (0.0-1.2) Aspartate Amino Transf (AST/SGOT) 26 U/L (5-40) Alanine Aminotransferase (ALT/SGPT) 12 U/L (3-33) Alkaline Phosphatase 100 U/L (35-104) Total Protein 6.9 g/dL (6.6-8.7) Albumin 3.7 g/dL (3.5-5.2) Globulin 3.2 g/dL Albumin/Globulin Ratio 1.1 (1.0-2.7) Thyroid Stimulating Hormone (TSH) 1.960 uIU/mL (0.300-4.500) Erythrocyte Sedimentation Rate 50 MM/HR (0-30) H CA 15-3 Antigen Pending CA 19-9 Antigen 11.98 U/mL (< 37) CA 27.29 Pending CA 125 Antigen Pending Anti-Nuclear Antibody Screen Pending Impression/Recommendations Problems: (1) Intractable back pain (2) old breast ca (3) r/o bone mets Status: not improved Recommendations #[id number] SHANTA MEDRANO Nov 18, 2016 18:52
[2016-11-18 20:00] VITALS: BP 128/69
[2016-11-18] MEDS: Magnesium Oxide 400mg tab ORAL SCH (20:52)
[2016-11-19] VITALS (7 sets, daily range): BP systolic 108–132; BP diastolic 52–89
--- NOTE | 2016-11-19 04:45 | Consultation ---
DATE OF CONSULTATION: 11/18/2016 NEUROLOGICAL CONSULTATION CONSULTING PHYSICIAN: Kenrick Wynn M.D. REQUESTING PHYSICIAN: Paul Temple M.D HISTORY OF PRESENT ILLNESS: The patient is a 70 years old lady who is seen in neurological consultation to evaluate new onset of intractable low back pain. The patient informed me that with no obvious reason about two months ago she developed quite severe pain in her low back region radiating to the flank area and anterior abdomen. Pain increasing with any movement, walking, but subsiding when she is in supine position and , pain exacerbated by her walking upstairs. Symptoms started approximately two months ago. Since then, they actually progressed and with this she was brought to the emergency room. On admission, blood pressure 195/99, heart rate of 90, and temperature 99.0. Her laboratory work included CBC study with hemoglobin 11.3, hematocrit 34.3, and platelets 50,000. Her chemistry panel with potassium 3.2, chloride 97, and BNP of 225, otherwise normal study, normal coagulation panel, and normal urinalysis. Extensive imaging studies were done including CAT scan of the brain, which revealed no intracranial abnormalities, no midline shift, and no hemorrhage. CAT scan of the lumbosacral spine with no contrast revealed mild bulging at L3-L4 and L4-L5 without evidence of spinal stenosis. There is a multilevel facet degeneration, clips from cholecystectomy noted. Abdomen and pelvis CAT scan was obtained as well, this was limited study, there was no definitive acute abnormality. There is a small nonspecific lucency in the bilateral iliac bones. At this point, bone scan to assess for activities was recommended. MRI of the lumbosacral spine was also obtained, again revealing mild annular bulging at L3-4 and L4-5 with no significant neural compromise and no significant lesions were then noted. The patient now informs me that she had never had previously a low back pain and this represent new development. She has a history of breast CA, this required mastectomy 18 years ago. She has been seen previously by Oncology, but the last time two years ago. She has a history of right facial Hanna's palsy few years ago, now stable affect. History of hypertension and history of depression. MEDICATIONS: Medical treatment at home included aspirin, calcium supplements, Kinder for pain management, and Motrin 600 mg q.i.d. p.r.n. ALLERGIES: Diphenhydramine. 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 No alcohol. No drug abuse. Nonsmoker. FAMILY HISTORY: Noncontributory. REVIEW OF SYMPTOMS: A 13-point review of symptoms was obtained, was negative except as given in the HPI. The patient is suffering from intractable pain in her low back region with radiation to both flank region and lateral aspect of the abdomen. Pain increasing with ambulation. There is occasional pain radiating to right lower extremity. PHYSICAL EXAMINATION: GENERAL: This is a well-developed and well-nourished female, who is lying comfortably in bed. VITAL SIGNS: Her vital signs are now stable. Blood pressure 110/50, temperature 97.5, and heart rate of 54. HEENT: Head, normocephalic. There is no evidence of trauma. Eyes, ears, and throat are clear. NECK: Supple. No meningeal signs. MUSCULOSKELETAL: The patient while lying in bed supine, she was for examination, but when attempting to turn around, she would develop severe pain pointing to the low back region and right flank area. She remained antalgic. The patient was able to lift left lower extremity, but had a positive straight leg raising at 30-40 degree on the right. Pain radiating with right leg elevation due to the pain predominantly right lower quadrant and right flank region. The original pain on percussion in the dorsal supine, but there is acute pain in the right flank region and pelvic bone region bilaterally more on the right. Peripheral pulses 1+ symmetric. MENTAL STATUS: Alert and oriented x3 with no evidence of aphasia or apraxia. Cognitive function normal. CRANIAL NERVE II: Pupils both responding to light and accommodation. Extraocular movement intact. No nystagmus. CRANIAL NERVE V: Normal corneal responses. CRANIAL NERVE VII: Significant right facial droop with occasional facial twitching representing old Hanna's palsy. CRANIAL NERVE VIII: Normal hearing. CRANIAL NERVE IX THROUGH XII: Tongue is in midline. Symmetric palate elevation. MOTOR EXAMINATION: Revealed a normal muscle tone and strength in both upper and lower extremities, although right leg elevation was limited due to pain. Deep tendon reflexes depressed bilaterally. No pathological responses. SENSORY EXAMINATION: Normal to pinprick and light touch. Gait not tested due to severe pain. IMPRESSION: 1. New onset of intractable low back, bilateral flank region pain, etiology at this time not determined. Rule out a bone metastasis. Rule out a polymyositis rheumatica. 2. History of breast cancer, status post mastectomy. 3. Hypertension. 4. History of depression. 5. Sinus bradycardia. RECOMMENDATIONS: 1. Get tumor markers. 2. Bone scan. 3. Collagen vascular disease workup. 4. Start on muscle relaxants and pain management. 5. We will re-evaluate daily. Thank you for allowing me to see this interesting patient in neurological consultation. Kenrick Doris Wynn DR: KAMI JOB#: [id number] CC:
[2016-11-19] MEDS: Magnesium Oxide 400mg tab ORAL SCH ×3 (08:53→17:31)
[2016-11-19] MEDS: Heparin 5000 units/ml inj SUBQ SCH ×2 (08:58→21:16)
--- NOTE | 2016-11-19 09:26 | Diagnostic Imaging Report ---
Indication: Abnormal CT showing iliac lucencies Technique: 22.5 mCi of technetium 99 M-MDP was injected intravenously. A whole-body bone scan was then performed in anterior and posterior projections. Several spot images were also obtained. Comparison: None Findings: . No abnormal uptake corresponding to the CT demonstrated iliac bone lucencies. Remainder the exam is unremarkable. Impression: Negative whole body bone scan
[2016-11-19 11:10] LABS: CA 125 3.8 U/mL (0.0-38.1); CA 27.29 15.9 U/mL (0.0-38.6); CA15-3 15.9 U/mL (0.0-25.0)
--- NOTE | 2016-11-19 17:06 | Neurology Progress Note ---
Interim History Interim History ROS Limited/Unobtainable: No Complaints: no pain now Events: much improved Objective Physical Exam Last Vital Signs Date Time Temp Pulse Resp B/P Pulse Ox O2 Delivery O2 Flow Rate FiO2 11/19/16 16:07 99.5 69 19 127/58 100 Room Air General: well developed, well nourished Head: normocophalic Neck: no rigidity Neurologic Exam Mental Status: awake, alert, oriented x4, normal cognition, good mathematical skills, normal recent memory, normal remote memory, preserved visuospatial function Speech: normal speech, no dysarthia Language: normal language, no aphasia Cranial Nerve II: fundus normal, visual cobb, no papilledema Cranial Nerves III, IV, : PERRLA, EOMI, pupils Cranial Nerve V: normal facial sensations, temporales function normal, masseters function normal, pterygoids function normal Cranial Nerve VII: no facial asymmetry, normal facial expressions Cranial Nerve VIII: normal hearing, no nystagmus Cranial Nerve IX: normal palate elevation, gag response Cranial Nerve X: no voice hoarseness Cranial Nerve XI: SCM symmetric, trapezii function normal Cranial Nerve XII: tongue midline, no tongue atrophy/fasciculations Motor System: normal muscle tone, strength 5/5, no involuntary movement, no muscle wasting Sensory: normal pinprick Coordination: normal finger to nose bilaterally Deep Tendon Reflexes: 1+ ankle (L), 1+ ankle (R), 1+ bicep (L), 1+ bicep (R), 1 + brachioradialis (L), 1+ brachioradialis (R), 1+ knee (L), 1+ knee (R), 1+ tricep (L), 1+ tricep (R) Reflexes: mute plantar (L), mute plantar (R) Impression/Recommendations Problems: (1) lumbar spondylosis with severe radiculopathic pain (2) old breast ca Status: doing well Recommendations #[id number] pt ot SHANTA Walter Nov 19, 2016 17:06
--- NOTE | 2016-11-19 22:47 | Pulmonology Progress Note ---
Assessment/Plan Problems: (1) Intractable back pain (2) Breast cancer Assessment/Plan bone scan is ordered tumro makers are pending pain management neuro evaluation Subjective ROS Limited/Unobtainable: No Allergies: Coded Allergies: DIPHENHYDRAMINE (Unverified Adverse Reaction, Mild, 11/18/16) patient states drowsy effect stays too long and does not like it Objective Last 24 Hour Vital Signs Date Time Temp Pulse Resp B/P Pulse Ox O2 Delivery O2 Flow Rate FiO2 11/19/16 20:00 97.9 81 20 108/52 99 Room Air 11/19/16 18:30 99.5 11/19/16 16:07 99.5 69 19 127/58 100 Room Air 11/19/16 15:19 99.5 69 19 127/58 Room Air 11/19/16 11:57 99.1 72 19 110/62 99 Room Air 11/19/16 08:22 97.5 83 18 132/89 100 Room Air 11/19/16 04:00 99.1 71 18 120/64 100 Room Air 11/19/16 00:00 98.4 68 20 129/69 99 Room Air Intake and Output 11/18/16 11/19/16 19:00 07:00 Intake Total 320 ml Balance 320 ml Intake Oral 320 ml # Voids 4 2 General Appearance: WD/WN HEENT: normocephalic, atraumatic Respiratory/Chest: chest wall non-tender, lungs clear Breasts: no masses Cardiovascular: normal peripheral pulses Abdomen: soft, non tender Genitourinary: normal external genitalia Extremities: no cyanosis Current Medications Medications (Trade) Dose Ordered Sig/Vinicio Route PRN Reason Start Time Stop Time Status Last Admin Dose Admin Acetaminophen (Tylenol) 650 mg Q4H PRN ORAL fever 11/17/16 07:45 12/17/16 07:44 Acetaminophen/ Hydrocodone Bitart ([place] 5/325) 1 tab Q6H PRN ORAL Moderate Pain (Pain Scale 4-6) 11/17/16 07:45 11/24/16 07:44 Al Hydroxide/Mg Hydroxide (Mylanta II) 30 ml Q6H PRN ORAL dyspepsia 11/17/16 07:45 12/17/16 07:44 Carisoprodol ([place]) 350 mg THREE TIMES A DAY ORAL 11/18/16 19:30 12/18/16 19:29 11/19/16 17:31 Clonidine HCl (Catapres) 0.1 mg Q6H PRN ORAL SBP > 160 11/17/16 15:15 12/17/16 15:14 11/18/16 09:56 Dextrose (Dextrose 50%) STAT PRN IV Hypoglycemia 11/17/16 07:45 12/17/16 07:44 Heparin Sodium (Porcine) (Heparin 5000 units/ml) 5,000 units EVERY 12 HOURS SUBQ 11/17/16 09:00 12/17/16 08:59 11/19/16 21:16 Hydroxyzine HCl (Atarax) 25 mg Q6H PRN ORAL Itching 11/18/16 09:45 12/18/16 09:44 11/18/16 09:55 Lorazepam (Ativan 2mg/ml 1ml) 0.5 mg Q4H PRN IV For Anxiety 11/17/16 07:45 11/24/16 07:44 Magnesium Oxide (Mag-Ox 400mg) 400 mg THREE TIMES A DAY ORAL 11/18/16 21:00 12/18/16 20:59 11/19/16 17:31 Morphine Sulfate (Morphine Sulfate) 2 mg Q4H PRN IVP For Pain 4-6 11/17/16 07:45 11/24/16 07:44 11/17/16 22:15 Morphine Sulfate (Morphine Sulfate) 4 mg Q4H PRN IVP For Pain 7-10 11/17/16 07:45 11/24/16 07:44 Ondansetron HCl (Zofran) 4 mg Q6H PRN IVP Nausea & Vomiting 11/17/16 07:45 12/17/16 07:44 Polyethylene Glycol (Miralax) 17 gm HSPRN PRN ORAL Constipation 11/17/16 07:45 12/17/16 07:44 Zolpidem Tartrate (Ambien) 5 mg HSPRN PRN ORAL Insomnia 11/17/16 20:00 12/17/16 19:59 RON BANSAL Nov 19, 2016 22:47
[2016-11-20] VITALS: BP 120/70
[2016-11-20 04:00] VITALS: BP 126/54
[2016-11-20 08:00] VITALS: BP 134/53
[2016-11-20] MEDS: Magnesium Oxide 400mg tab ORAL SCH ×3 (08:18→17:05)
[2016-11-20] MEDS: Heparin 5000 units/ml inj SUBQ SCH ×2 (08:26→21:03)
[2016-11-20 12:05] VITALS: BP 144/71
--- NOTE | 2016-11-20 15:49 | General Progress Note ---
Assessment/Plan Assessment/Plan (1) Lumbago (2) Lumbar Herniated disc (3) Lumbar Spondylosis (4) Lumbar Degenerative disc disease The patient will be continued on the morphine and [place]. The patient was discussed with Dr. Collier and Dr. Collier concurred. Subjective Date patient seen: Nov 20, 2016 Time patient seen: 01:15 - am Allergies: Coded Allergies: DIPHENHYDRAMINE (Unverified Adverse Reaction, Mild, 11/18/16) patient states drowsy effect stays too long and does not like it Subjective REVIEW OF SYSTEMS: Denies rash, fever, chills, sweating, dizziness, drowsiness, blurred vision, sore throat, or change in weight. No shortness of breath or chest pain. No nausea, vomiting, diarrhea, or blood in the stool or urine. No bowel or bladder incontinence. No dysuria. She is complaining of low back pain. SUBJECTIVE: Pain is at a 2/10 at this time reduced on the morphine and [place]. MRI results was reviewed with the patient. Objective Last 24 Hour Vital Signs Date Time Temp Pulse Resp B/P Pulse Ox O2 Delivery O2 Flow Rate FiO2 11/20/16 13:56 97.9 11/20/16 12:05 97.9 74 18 144/71 100 Room Air 11/20/16 08:00 98.4 67 18 134/53 100 Room Air 11/20/16 04:00 97.9 61 20 126/54 99 Room Air 11/20/16 00:00 97.2 61 20 120/70 100 Room Air 11/19/16 20:00 97.9 81 20 108/52 99 Room Air 11/19/16 16:07 99.5 69 19 127/58 100 Room Air Intake and Output 11/19/16 11/20/16 19:00 07:00 Intake Total 720 ml Balance 720 ml Intake Oral 720 ml # Voids 2 # Bowel Movements 1 Height (Feet): 5 Height (Inches): 3.00 Weight (Pounds): 155 Objective NECK: Range of motion is full in all directions. No tenderness to paracervical muscles. No adenopathy. LUNGS: Clear. HEART: Regular. ABDOMEN: Benign. EXTREMITIES: No cyanosis. No clubbing. No edema. NEURO: No changes. Procedure: MRI L Spine no Contrast Findings: There is a slight degree of image degradation due to motion artifact Vertebral body heights are preserved. Normal bony alignment. The disc spaces are preserved. There is a small hemangioma within the L5 vertebral body. Conus medullaris terminates at the inferior L1 level. At L3-4 and L4-5, there is minimal if any circumferential annular bulge this does not significantly compromise the spinal canal or the neural foramina. At the remaining disc levels, no significant disc bulge or protrusion, spinal stenosis , or neural foraminal stenosis. There is multilevel facet degeneration. MARCO ANTONIO CHAVEZ. Nov 20, 2016 15:49
[2016-11-20 16:00] VITALS: BP 152/97
--- NOTE | 2016-11-20 18:24 | Pulmonology Progress Note ---
Assessment/Plan Problems: (1) Intractable back pain (2) Breast cancer Assessment/Plan bone scan negative tumro makers are pending pain management neuro evaluation appreciated dc home in am Subjective ROS Limited/Unobtainable: No Allergies: Coded Allergies: DIPHENHYDRAMINE (Unverified Adverse Reaction, Mild, 11/18/16) patient states drowsy effect stays too long and does not like it Objective Last 24 Hour Vital Signs Date Time Temp Pulse Resp B/P Pulse Ox O2 Delivery O2 Flow Rate FiO2 11/20/16 18:04 98.4 11/20/16 16:00 98.4 79 18 152/97 98 Room Air 11/20/16 12:05 97.9 74 18 144/71 100 Room Air 11/20/16 08:00 98.4 67 18 134/53 100 Room Air 11/20/16 04:00 97.9 61 20 126/54 99 Room Air 11/20/16 00:00 97.2 61 20 120/70 100 Room Air 11/19/16 20:00 97.9 81 20 108/52 99 Room Air Intake and Output 11/19/16 11/20/16 19:00 07:00 Intake Total 720 ml Balance 720 ml Intake Oral 720 ml # Voids 2 # Bowel Movements 1 General Appearance: WD/WN HEENT: atraumatic Respiratory/Chest: chest wall non-tender, lungs clear Cardiovascular: normal peripheral pulses Abdomen: normal bowel sounds, no scars Extremities: no cyanosis Current Medications Medications (Trade) Dose Ordered Sig/Vinicio Route PRN Reason Start Time Stop Time Status Last Admin Dose Admin Acetaminophen (Tylenol) 650 mg Q4H PRN ORAL fever 11/17/16 07:45 12/17/16 07:44 Acetaminophen/ Hydrocodone Bitart ([place] 5/325) 1 tab Q6H PRN ORAL Moderate Pain (Pain Scale 4-6) 11/17/16 07:45 11/24/16 07:44 Al Hydroxide/Mg Hydroxide (Mylanta II) 30 ml Q6H PRN ORAL dyspepsia 11/17/16 07:45 12/17/16 07:44 Carisoprodol (Soma) 350 mg THREE TIMES A DAY ORAL 11/18/16 19:30 12/18/16 19:29 11/20/16 17:05 Clonidine HCl (Catapres) 0.1 mg Q6H PRN ORAL SBP > 160 11/17/16 15:15 12/17/16 15:14 11/18/16 09:56 Dextrose (Dextrose 50%) STAT PRN IV Hypoglycemia 11/17/16 07:45 12/17/16 07:44 Heparin Sodium (Porcine) (Heparin 5000 units/ml) 5,000 units EVERY 12 HOURS SUBQ 11/17/16 09:00 12/17/16 08:59 11/20/16 08:26 Hydroxyzine HCl (Atarax) 25 mg Q6H PRN ORAL Itching 11/18/16 09:45 12/18/16 09:44 11/18/16 09:55 Lorazepam (Ativan 2mg/ml 1ml) 0.5 mg Q4H PRN IV For Anxiety 11/17/16 07:45 11/24/16 07:44 Magnesium Oxide (Mag-Ox 400mg) 400 mg THREE TIMES A DAY ORAL 11/18/16 21:00 12/18/16 20:59 11/20/16 17:05 Morphine Sulfate (Morphine Sulfate) 2 mg Q4H PRN IVP For Pain 4-6 11/17/16 07:45 11/24/16 07:44 11/17/16 22:15 Morphine Sulfate (Morphine Sulfate) 4 mg Q4H PRN IVP For Pain 7-10 11/17/16 07:45 11/24/16 07:44 Ondansetron HCl (Zofran) 4 mg Q6H PRN IVP Nausea & Vomiting 11/17/16 07:45 12/17/16 07:44 Polyethylene Glycol (Miralax) 17 gm HSPRN PRN ORAL Constipation 11/17/16 07:45 12/17/16 07:44 Zolpidem Tartrate (Ambien) 5 mg HSPRN PRN ORAL Insomnia 11/17/16 20:00 12/17/16 19:59 RON BANSAL Nov 20, 2016 18:24
[2016-11-20 20:00] VITALS: BP 139/73
--- NOTE | 2016-11-20 22:29 | Cardiology Report ---
APPROVED REPORT EKG Measurement Heart [id number] Sinus rhythm with marked sinus arrhythmia Otherwise normal ECG
[2016-11-21] VITALS: BP 130/63
[2016-11-21 04:00] VITALS: BP 138/67
[2016-11-21 08:12] VITALS: BP 142/74
[2016-11-21] MEDS ORDERED: Tubing IV Secondary IV ONE (08:17)
[2016-11-21] MEDS: Magnesium Oxide 400mg tab ORAL SCH ×2 (08:28→12:28)
[2016-11-21] MEDS: Heparin 5000 units/ml inj SUBQ SCH (08:34)
--- NOTE | 2016-11-21 08:43 | General Progress Note ---
Assessment/Plan Assessment/Plan (1) Lumbago (2) Lumbar Herniated disc (3) Lumbar Spondylosis (4) Lumbar Degenerative disc disease The patient will be continued on the morphine and norco. RX for [place] 5/325mg 10 tabs was written for pt in anticipation for discharge. The patient was discussed with Dr. Collier and Dr. Collier concurred. Subjective Date patient seen: Nov 21, 2016 Time patient seen: 07:15 - am Allergies: Coded Allergies: DIPHENHYDRAMINE (Unverified Adverse Reaction, Mild, 11/18/16) patient states drowsy effect stays too long and does not like it Subjective REVIEW OF SYSTEMS: Denies rash, fever, chills, sweating, dizziness, drowsiness, blurred vision, sore throat, or change in weight. No shortness of breath or chest pain. No nausea, vomiting, diarrhea, or blood in the stool or urine. No bowel or bladder incontinence. No dysuria. She is complaining of low back pain. SUBJECTIVE: Pt reports that here pain has been tolerated well and is looking forward to being discharged home. Objective Last 24 Hour Vital Signs Date Time Temp Pulse Resp B/P Pulse Ox O2 Delivery O2 Flow Rate FiO2 11/21/16 08:12 98.2 74 20 142/74 100 Room Air 11/21/16 04:00 97.7 55 18 138/67 100 Room Air 11/21/16 00:00 97.0 66 18 130/63 98 Room Air 11/20/16 20:00 97.5 80 20 139/73 100 Room Air 11/20/16 18:04 98.4 11/20/16 16:00 98.4 79 18 152/97 98 Room Air 11/20/16 12:05 97.9 74 18 144/71 100 Room Air Intake and Output 11/20/16 11/21/16 19:00 07:00 Intake Total 560 ml Balance 560 ml Intake Oral 560 ml # Voids 2 1 Height (Feet): 5 Height (Inches): 3.00 Weight (Pounds): 155 Objective NECK: Range of motion is full in all directions. No tenderness to paracervical muscles. No adenopathy. LUNGS: Clear. HEART: Regular. ABDOMEN: Benign. EXTREMITIES: No cyanosis. No clubbing. No edema. NEURO: No changes. MARCO ANTONIO CHAVEZ Nov 21, 2016 08:43
[2016-11-21] MEDS ORDERED: NORCO 5-325 TA1 EACH ORAL (11:56)
[2016-11-21 11:59] VITALS: BP 161/84
[2016-11-21 14:21] VITALS: BP 157/66
--- NOTE | 2016-11-21 22:03 | Pulmonology Progress Note ---
Assessment/Plan Problems: (1) Intractable back pain (2) Breast cancer Assessment/Plan bone scan negative tumro makers are negative pain management neuro evaluation appreciated dc home today Subjective ROS Limited/Unobtainable: No Allergies: Coded Allergies: DIPHENHYDRAMINE (Unverified Adverse Reaction, Mild, 11/18/16) patient states drowsy effect stays too long and does not like it Objective Last 24 Hour Vital Signs Date Time Temp Pulse Resp B/P Pulse Ox O2 Delivery O2 Flow Rate FiO2 11/21/16 14:21 86 157/66 11/21/16 13:21 97.0 11/21/16 12:28 161/84 11/21/16 11:59 97.0 74 20 161/84 100 Room Air 11/21/16 08:12 98.2 74 20 142/74 100 Room Air 11/21/16 04:00 97.7 55 18 138/67 100 Room Air 11/21/16 00:00 97.0 66 18 130/63 98 Room Air Intake and Output 11/20/16 11/21/16 19:00 07:00 Intake Total 560 ml Balance 560 ml Intake Oral 560 ml # Voids 2 1 General Appearance: WD/WN HEENT: normocephalic Respiratory/Chest: chest wall non-tender Breasts: no masses Cardiovascular: normal rate Abdomen: normal bowel sounds, no scars Extremities: no cyanosis RON BANSAL Nov 21, 2016 22:03
--- NOTE | 2016-11-22 13:30 | Discharge Summary ---
Discharge Summary Hospital Course Date of Admission Nov 17, 2016 at 02:25 Date of Discharge Nov 21, 2016 at 14:16 Admitting Diagnosis INTRACTABLE BACK PAIN AMRIT Marina is a 70 year old female who was admitted on Nov 17, 2016 at 02:25 for Intractable Back Pain Hospital Course dc summary #[id number] Discharge Medications Continued Medications: Aspirin* (Aspir 81*) 81 Mg Tablet.dr 81 MG ORAL DAILY, TAB Calcium Carbonate (Calcium) 500 Mg Tab.chew 500 MG PO, TAB Hydrocodone Bit/Acetaminophen 5-325* ([place] 5-325*) 1 Each Tablet 1 TAB ORAL EVERY 4 HOURS, #10 TAB 0 Refills Ibuprofen* (Motrin*) 600 Mg Tablet 600 MG ORAL Q8H PRN for For Pain, #20 TAB Discharge Condition Upon Discharge: stable Discharge Disposition Patient was discharged to Home (01) Discharge Diagnoses: Discharge Instructions Discharge Instructions Special Instructions I have been assigned to complete a D/C Summary on this account. I was not involved in the patient management Tequila Sandoval NP ([place]) Nov 22, 2016 13:30
--- NOTE | 2016-11-23 03:45 | Discharge Summary 2 SIG ---
DATE OF ADMISSION: 11/17/2016 DATE OF DISCHARGE: 11/21/2016 REASON FOR ADMISSION : 70-year-old female with a history of breast cancer 18 years ago, status post mastectomy, in remission, presented with complaints of intractable back pain. The back pain radiated to the left flank . Pain was present for few days. She denied any falls or trauma. She reported many stairs in her home, which had been exacerbated her pain. She denied chest pain or shortness of breath. She denied dysuria or frequency. She denied abdominal pain. CT of the abdomen and pelvis was done in the emergency room and revealed small nonspecific lucencies within the bilateral iliac bones. Recommended bone scan for further workup. CT of the head revealed no acute intracranial pathology. Spine CT also done in the emergency room revealed no acute bony trauma, degenerative changes included annular bulge at L3-L4 and L4-L5, but no significant spinal stenosis. No significant disk bulge or protrusion. No evidence of neuroforaminal stenosis. Noted multilevel facet degeneration. No acute fracture. No dislocation. The patient was admitted for further management. ADMITTING DIAGNOSES: 1. Intractable back pain, new onset, 2. Rule out metastasis 3. Rule out polymyositis rheumatica. 4. History of breast cancer, status post mastectomy in remission. 5. Hypertension. HOSPITAL STAY: The patient was admitted. Neurology and pain specialist consults were requested. The patient was started on symptomatic treatment and pain management. Tumor markers were all negative including CEA, CA 19-9, CA-15-3, CA-125, and CA 27-29. Subsequently bone scan was done, which was negative for any evidence of abnormality. MRI of the lumbar spine revealed minimal circumferential annular bulge at L3-L4 and L4-L5, probably not resulting in any significant neural compromise. No significant abnormalities, otherwise. Bone metastasis were ruled out. Workup for collagen vascular disease revealed negative SHANNON. ESR elevated - 50 The patient started to work with physical and occupational therapists. Fall precaution were maintained. Pain specialist followed. While in the hospital, the patient was on morphine and [place]. Prescription provided for [place] for home use and follow up with the primary medical doctor and pain specialist as needed. The patient improved significantly with pain management and physical and occupational therapy. The patient was stable for discharge home. DISCHARGE DIAGNOSES: 1. Lumbar spondylosis with severe radiculopathic pain. 2. Lumbar degenerative disk disease. 3. Lumbago. 4. Lumbar herniated disk. 5. History of breast cancer, status post mastectomy, in remission. 6. Hypertension. DISCHARGE HOME INSTRUCTIONS: The patient was discharged home. Follow up with the primary medical doctor. DISCHARGE MEDICATIONS: see medication reconciliation list. Paul Temple M.D. I have been assigned to dictate discharge summary on this account and I was not involved in the patient's management. Tequila Sandoval ([facility] N.PChilo DR: Candi JOB#: [id number] CC: AAMIR
== END 2016-11-21 14:16 | disposition home or self-care (01) | DRG 347 ==
LOC: EMR 23:10 → 4E 11-17 02:25 → EDBEDREQ 11-17 02:55
DX: M51.16 Intervertebral disc disorders with radiculopathy, lumbar region (principal); I10 Essential (primary) hypertension; M47.26 Other spondylosis with radiculopathy, lumbar region; M54.9 Dorsalgia, unspecified; Z85.3 Personal history of malignant neoplasm of breast; Z88.8 Allergy status to other drugs, medicaments and biological substances; Z90.10 Acquired absence of unspecified breast and nipple; R00.1 Bradycardia, unspecified
CPT/HCPCS: 36415; 70450; 72131; 72148; 74177; 78306; 80053; 81003; 82378; 82550; 82553; 83690; 83880; 84443; 84484; 85025; 85610; 85651; 85730; 86039; 86300; 86301; 86304; 90732; 93005